=== PATIENT | female | born 1970 | race Caucasian/White ===

== ENCOUNTER 2018-05-15 14:43 | Emergency (ER) | payer OTHER ==
[~2018-05-15] VITALS: Ht 170.2 cm; Wt 170.1 kg
[2018-05-15] MEDS ORDERED: DOXYCYCLINE 10100 MG PO (20:14)
[2018-05-15 20:34] VITALS: BP 132/60
== END 2018-05-15 20:36 | disposition left against medical advice (07) ==
LOC: ER 14:43
DX: J18.9 Pneumonia, unspecified organism (principal); Z59.0 Homelessness

== ENCOUNTER 2018-07-15 20:37 | Emergency (ER) | payer OTHER ==
[~2018-07-15] VITALS: Ht 172.7 cm; Wt 171.5 kg
[~2018-07-15 20:37] MED LIST: DOXYCYCLINE 10100 MG PO
[2018-07-15 20:41] VITALS: BP 127/62
== END 2018-07-15 20:58 | disposition left against medical advice (07) ==
LOC: ER 20:37
DX: Z91.19 Patient's noncompliance with other medical treatment and regimen (principal); F17.210 Nicotine dependence, cigarettes, uncomplicated